=== PATIENT | male | born 1960 | race Caucasian/White ===

== ENCOUNTER → 2019-12-20 12:10 | Outpatient (CLI) | payer OTHER, SELFPAY ==
--- NOTE | 2019-12-20 12:12 | DI.RAD.S_ITS ---
PROCEDURE: XR KNEE LT 3V INDICATIONS: pain/swelling to medial aspect TECHNIQUE: 4 views of the knee were acquired. COMPARISON: None. FINDINGS: Bones: Tricompartmental degenerative changes. Cortical irregularity noted on the sunrise view only involving the medial femoral trochlear groove. Otherwise, no definite fracture seen. Small joint effusion. Soft tissue swelling over the anterior knee. No suspicious bony lesions. Soft tissues: Small suprapatellar joint effusion. No suspicious soft tissue calcifications. IMPRESSION: 1. Small cortical irregularity and lucency involving the medial femoral trochlear groove seen only on the sunrise view. This may be degenerative in etiology although a small osteochondral defect not excluded if there is history of trauma. Consider further evaluation with MRI. 2. Tricompartmental degenerative change. 3. Small suprapatellar joint effusion. Dictated by: Dom Moreno M.D. on 12/20/2019 at 15:39 Approved by: Dom Moreno M.D. on 12/20/2019 at 15:42
== END ==
PROVIDERS: Family Provider Family Medicine; PCP Family Medicine; Referring Provider Physician Assistant; Visit Provider Physician Assistant
DX: S89.92XA Unspecified injury of left lower leg, initial encounter (principal); M25.462 Effusion, left knee; X58.XXXA Exposure to other specified factors, initial encounter
CPT/HCPCS: 73562

== ENCOUNTER → 2025-04-27 13:18 | Outpatient (CLI) | payer OTHER, SELFPAY ==
--- NOTE | 2025-04-27 13:20 | DI.RAD.S_ITS ---
PROCEDURE: XR FINGER RT MIN 2V
== END ==
PROVIDERS: Family Provider Family Medicine; PCP Family Medicine; Referring Provider Chiropractor; Visit Provider Chiropractor
DX: M79.646 Pain in unspecified finger(s) (principal)
CPT/HCPCS: 73140